=== PATIENT | male | born 1965 | race Caucasian/White ===

== ENCOUNTER → 2018-03-23 13:42 | Outpatient (CLI) | payer OTHER | END | disposition home or self-care (01) | LOC: D.MRI 13:42 | DX: M23.92 Unspecified internal derangement of left knee (principal) ==

== ENCOUNTER → 2018-06-21 12:43 | Outpatient (CLI) | payer OTHER | END | disposition home or self-care (01) | LOC: D.MRI 12:43 | DX: M25.562 Pain in left knee (principal) ==

== ENCOUNTER → 2019-02-08 11:52 | Outpatient (CLI) | payer OTHER | END | disposition home or self-care (01) | LOC: D.CT 11:52 | PROVIDERS: ATTEND Nurse Practitioner | DX: J01.90 Acute sinusitis, unspecified (principal) ==